=== PATIENT | male | born 1980 | race Hispanic/Latino ===

== ENCOUNTER 2018-07-25 20:40 | Emergency (ER) | payer SELFPAY ==
[2018-07-25] MEDS ORDERED: Ketorolac Tromethamine 30 MG/ML VIAL ONE (21:00)
[2018-07-25] MEDS ORDERED: Ondansetron HCl/PF 4 MG/2 ML Vial ONE (21:00)
[2018-07-25 21:06] LABS: #Basophils 0.1 thou/uL (0.0-0.2); #Eosinphils 0.1 thou/uL (0.0-0.7); #Lymphocytes 2.8 thou/uL (1.20-3.40); #Monocytes 0.8 thou/uL (0.11-0.59); %Basophils 0.7 % (0.0-1.0); %Eosinophils 0.7 % (0.0-10.0); %Lymphocytes 28.4 % (21.0-51.0); %Monocytes 8.4 % (0.0-10.0); %Neutrophils 61.7 % (42.0-75.0); Hemoglobin 16.5 g/dL (14.0-18.0); Mean Corpuscular HGB CONC 33.9 g/dL (32.0-36.0); Mean Corpuscular Hemoglobin 30.8 pg (27.0-31.0); Mean Corpuscular Volume 90.9 fL (78.0-98.0); Mean Platelet Volume 7.4 fL (7.4-10.4); Platelet Count 291 thou/uL (130-400); RBC Distribution Width 12.2 % (11.5-14.5); Red Blood Cell (RBC) Count 5.36 mill/uL (4.70-6.10); White Blood Cell (WBC) Count 9.7 thou/uL (4.8-10.8)
--- NOTE | 2018-07-25 22:00 | ULT ---
SCROTAL ULTRASOUND WITH MCMAHON SCALE AND DOPPLER COLOR FLOW IMAGIN07/25/18 INDICATION: Scrotal pain, new onset. FINDINGS: Doppler evaluation reveals flow to each testis without sonographic evidence of torsion. There is micr ocalcification noted within each testis. Cyst formation witin the right epididymis is present. There is vascularity of the right hemiscrotum, more pronounced with Valsalva maneuver indicating varicocele formation. IMPRESSION: No sonographic evidence of intratesticular mass or torsion. Bilateral testicular microcalcification compatible with microlithiasis. Right sided varicocele. POS: [facility]
[2018-07-25 22:25] LABS: ALT (SGPT) 96 U/L (8-55); Albumin 4.9 g/dL (3.5-5.0); Alkaline Phosphatase 104 U/L (40-150); Anion Gap 16 mmol/L (10-20); BUN (Urea Nitrogen) 15 mg/dL (8.9-20.6); Bilirubin, Total 0.9 mg/dL (0.2-1.2); Calc. Creatinine Clearance 0 mL/min (70-130); Calcium 10.1 mg/dL (7.8-10.44); Carbon Dioxide 23 mmol/L (22-29); Chloride 105 mmol/L (98-107); Estimated GFR-MDRD 68; Globulin 4.1 g/dL (2.4-3.5); Glucose 134 mg/dL (70-105); Potassium 4.3 mmol/L (3.5-5.1); Sodium 140 mmol/L (136-145)
[2018-07-25 22:53] LABS: Bilirubin Small (Negative); Blood, Urine Large (Negative); Clarity TURBID (Clear); Glucose, Urine (Dipstick) Negative (Negative); Leukocyte Small (Negative); Nitrite Negative (Negative); Protein, Urine (Dipstick) 100 mg/dL (Neg-Trace); Specific Gravity, Urine 1.025 (1.002-1.036); pH, Urine 5.5 (5.0-9.0)
[2018-07-25 22:55] LABS: Bacteria/HPF None Seen HPF (None Seen); Hyaline Casts/LPF 7-10 HYALINE CAST LPF (0-3 Hyaline); Pathc Cast-AUWi Flag 2.03 (0-2.49); RBC/HPF GREATER THAN 50-TNTC HPF (0-3); WBC/HPF 21-50 HPF (0-3)
[2018-07-25 23:02] LABS: AST (SGOT) 65 U/L (5-34)
[2018-07-25 23:07] LABS: Transitional Epithelial 0-3 HPF (0-3); Trichomonas/HPF 1+ HPF (None Seen)
[2018-07-26 23:13] LABS: Chlamydia by PCR Not Detected (NotDetected); GC by PCR Not Detected (NotDetected)
== END 2018-07-26 00:22 | disposition home or self-care (01) ==
LOC: ERS 20:40
DX: A59.09 Other urogenital trichomoniasis (principal)
CPT/HCPCS: 76870; 80053; 81003; 81015; 85025; 87491; 87591; 93976; 96361; 96374; 96375; J1885; J2405